=== PATIENT | female | born 1995 | race Caucasian/White ===

== ENCOUNTER → 2017-10-06 | Outpatient (REF) | payer OTHER ==
[2017-10-06 13:30] LABS: BASO % 0.4 % (0.0-1.0); EOS # 0.1 10^3/uL (0.0-0.50); EOS % 0.8 % (0.0-3.0); HEMATOCRIT 41.9 % (36.0-47.0); HEMOGLOBIN 13.5 g/dl (12.0-16.0); IMMATURE GRANULOCYTE # 0.1 10^3/uL (0-0); IMMATURE GRANULOCYTE % 0.8 % (0-0); LYMPH # 2.9 10^3/uL (1.5-6.5); LYMPH % 31.9 % (24.0-44.0); MEAN CORPUSCULAR HEMOGLOBIN 29.7 pg (27.0-33.0); MEAN CORPUSCULAR HGB CONC 32.2 g/dl (32.0-36.5); MEAN CORPUSCULAR VOLUME 92.3 fl (80.0-96.0); MONO # 0.7 10^3/uL (0.0-0.8); MONO % 8.3 % (0.0-5.0); NEUTROPHILS # 5.2 10^3/uL (1.8-7.7); NEUTROPHILS % 57.8 % (36.0-66.0); PLATELET COUNT, AUTOMATED 366 10^3/uL (150-450); RED BLOOD COUNT 4.54 10^6/uL (4.00-5.40); RED CELL DISTRIBUTION WIDTH 12.4 % (11.5-14.5); WHITE BLOOD COUNT 8.9 10^3/uL (4.0-10.0)
[2017-10-06 13:48] LABS: ALBUMIN/GLOBULIN RATIO 1.43 (1.00-1.93); ALKALINE PHOSPHATASE 80 U/L (45-117); ALT/SGPT 21 U/L (12-78); ANION GAP 6 MEQ/L (8-16); AST/SGOT 12 U/L (7-37); BILIRUBIN,TOTAL 0.4 MG/DL (0.2-1.0); BLOOD UREA NITROGEN 11 MG/DL (7-18); CARBON DIOXIDE LEVEL 28 MEQ/L (21-32); CHLORIDE LEVEL 108 MEQ/L (98-107); CREATININE FOR GFR 0.69 MG/DL (0.55-1.30); FREE T4 1.35 NG/DL (0.76-1.46); GLOMERULAR FILTRATION RATE > 60.0 (>60); GLUCOSE, FASTING 80 MG/DL (70-100); POTASSIUM SERUM 4.2 MEQ/L (3.5-5.1); SODIUM LEVEL 142 MEQ/L (136-145); TOTAL PROTEIN 6.8 GM/DL (6.4-8.2)
== END ==
LOC: M SFHCPLAZ 10:59
DX: Z00.00 Encounter for general adult medical examination without abnormal findings (principal); E06.3 Autoimmune thyroiditis

== ENCOUNTER → 2017-10-20 | Outpatient (REF) | payer OTHER ==
[2017-10-20 11:58] LABS: APPEARANCE, URINE HAZY (CLEAR); BACTERIA, URINE AUTO 2+ (NEGATIVE); BILIRUBIN, URINE AUTO NEGATIVE (NEGATIVE); BLOOD, URINE BLOOD NEGATIVE (NEGATIVE); COLOR, URINE YELLOW (YELLOW); GLUCOSE, URINE (UA) AUTO NEGATIVE (NEGATIVE); KETONE, URINE AUTO NEGATIVE (NEGATIVE); LEUKOCYTE ESTERASE, URINE AUTO TRACE (NEGATIVE); MUCUS, URINE SMALL (NEGATIVE); NITRITE, URINE AUTO POSITIVE (NEGATIVE); PROTEIN, URINE AUTO NEGATIVE (NEGATIVE); RBC, URINE AUTO 2 /HPF (0-3); SPECIFIC GRAVITY URINE AUTO 1.015 (1.002-1.035); SQUAMOUS EPITHELIAL CELL UR AU 0 /HPF (0-6); UROBILINOGEN, URINE AUTO 0.2 mg/dL (0.0-2.0); WBC, URINE AUTO 12 /HPF (0-3)
== END ==
LOC: M SFHCPLAZ 11:28
DX: R30.0 Dysuria (principal)

== ENCOUNTER → 2018-04-13 | Outpatient (REF) | payer OTHER ==
[2018-04-13 20:04] LABS: FREE T4 1.17 NG/DL (0.76-1.46)
== END ==
LOC: M SFHCPLAZ 15:19
DX: E06.3 Autoimmune thyroiditis (principal)

== ENCOUNTER → 2018-05-18 | Outpatient (CLI) | payer OTHER, MEDICAID | LOC: M SMT 12:15 | DX: Z34.82 Encounter for supervision of other normal pregnancy, second trimester (principal); Z36.89 Encounter for other specified antenatal screening ==

== ENCOUNTER → 2018-06-08 | Outpatient (CLI) | payer OTHER, MEDICAID | LOC: M RAD 10:47 | DX: Z36.89 Encounter for other specified antenatal screening (principal); Z3A.22 22 weeks gestation of pregnancy | CPT/HCPCS: 76816 ==

== ENCOUNTER → 2018-07-13 | Outpatient (CLI) | payer MEDICAID, OTHER ==
[2018-07-13 18:11] LABS: FREE T4 0.94 NG/DL (0.76-1.46); THYROID STIMULATING HORMONE 1.47 uIU/ML (0.358-3.740)
[2018-07-13 18:17] LABS: BASO # 0.1 10^3/uL (0.0-0.2); BASO % 0.3 % (0.0-1.0); EOS # 0.1 10^3/uL (0.0-0.50); EOS % 0.6 % (0.0-3.0); HEMATOCRIT 40.6 % (36.0-47.0); HEMOGLOBIN 12.9 g/dl (12.0-15.5); LYMPH # 2.4 10^3/uL (1.5-6.5); LYMPH % 15.1 % (24.0-44.0); MEAN CORPUSCULAR HEMOGLOBIN 29.9 pg (27.0-33.0); MEAN CORPUSCULAR HGB CONC 31.8 g/dl (32.0-36.5); MEAN CORPUSCULAR VOLUME 94.2 fl (80.0-96.0); MONO # 1.1 10^3/uL (0.0-0.8); MONO % 6.6 % (0.0-5.0); NEUTROPHILS # 12.2 10^3/uL (1.8-7.7); NEUTROPHILS % 76.5 % (36.0-66.0); PLATELET COUNT, AUTOMATED 276 10^3/uL (150-450); RED BLOOD COUNT 4.31 10^6/uL (4.00-5.40); WHITE BLOOD COUNT 15.9 10^3/uL (4.0-10.0)
== END ==
LOC: M SMT 14:06
PROVIDERS: ATTEND Specialist
DX: O99.282 Endocrine, nutritional and metabolic diseases complicating pregnancy, second trimester (principal); E03.9 Hypothyroidism, unspecified

== ENCOUNTER → 2018-09-08 | Outpatient (REF) | payer MEDICAID | LOC: M SFHCPLAZ 12:56 | PROVIDERS: ATTEND Physician Assistant | DX: J02.9 Acute pharyngitis, unspecified (principal) ==

== ENCOUNTER → 2018-09-15 | Outpatient (REF) | payer MEDICAID, OTHER | LOC: M LAB REF 12:54 | PROVIDERS: ATTEND Advanced Practice Midwife | DX: Z34.83 Encounter for supervision of other normal pregnancy, third trimester (principal) ==

== ENCOUNTER → 2018-09-27 | Outpatient (CLI) | payer MEDICAID ==
[2018-09-27 13:47] LABS: THYROID STIMULATING HORMONE 3.45 uIU/ML (0.358-3.740)
[2018-09-28 07:23] LABS: FREE T4 0.84 NG/DL (0.76-1.46)
== END ==
LOC: M LAB 11:59
PROVIDERS: ATTEND Advanced Practice Midwife
DX: Z34.83 Encounter for supervision of other normal pregnancy, third trimester (principal); Z3A.00 Weeks of gestation of pregnancy not specified

== ENCOUNTER 2018-10-01 21:12 | Inpatient (IN) | payer MEDICAID ==
[~2018-10-01] VITALS: Ht 162.6 cm; Wt 87.3 kg
[2018-10-01 21:38] VITALS: BP 129/80
[2018-10-01] MEDS ORDERED: LEVO150T7 PO (22:04)
[2018-10-01] MEDS ORDERED: PRENTAB9 PO (22:04)
[2018-10-01 22:28] LABS: HEMATOCRIT 43.3 % (36.0-47.0); HEMOGLOBIN 14.1 g/dl (12.0-15.5); MEAN CORPUSCULAR HEMOGLOBIN 29.1 pg (27.0-33.0); MEAN CORPUSCULAR HGB CONC 32.6 g/dl (32.0-36.5); MEAN CORPUSCULAR VOLUME 89.3 fl (80.0-96.0); PLATELET COUNT, AUTOMATED 308 10^3/uL (150-450); RED BLOOD COUNT 4.85 10^6/uL (4.00-5.40); WHITE BLOOD COUNT 12.5 10^3/uL (4.0-10.0)
[2018-10-01] MEDS ORDERED: PENICILLIN G POTASSIUM IV 5 MU in D5W MINI-BAG PLUS 100 ML IV STA (23:03)
[2018-10-01] MEDS ORDERED: LR 1,000 ML IV SCH (23:03)
[2018-10-01] MEDS ORDERED: OXYTOCIN DRIP 30 UNITS in APPROPRIATE DILUENT 1 EA IV SCH (23:15)
[2018-10-01 23:30] VITALS: BP 125/82
[2018-10-02] VITALS (28 sets, daily range): BP systolic 106–138; BP diastolic 60–93
[2018-10-02] MEDS ORDERED: FENTANYL 2MCG/ML ROPIVACAINE 0.2% IN 0.9% NACL 100ML IVBAG As Ordered ONE (02:50)
[2018-10-02] MEDS: PENICILLIN G POTASSIUM IV 2.5 MU in APPROPRIATE DILUENT 1 EA IV SCH ×2 (03:15→03:35)
[2018-10-02] MEDS ORDERED: ONDANSETRON 4MG/2ML VIAL (J2405) IV PRN ×2 (03:45→06:45)
[2018-10-02] MEDS ORDERED: NALOXONE INJ 0.4 MG/1 ML VIAL (J2310) IV PRN (03:45)
[2018-10-02] MEDS ORDERED: EPIDURAL COMMENT XX SCH (03:45)
[2018-10-02] MEDS ORDERED: diphenhydrAMINE INJ 50MG/ML VIAL (J1200) IV PRN (03:45)
[2018-10-02] MEDS ORDERED: EPIDURAL/PCA KEYS XX PRN (03:45)
[2018-10-02] MEDS ORDERED: LACTATED RINGER'S 1000 ML IV PRN (03:45)
[2018-10-02] MEDS ORDERED: ePHEDrine SULFATE 25 MG/5 ML(5MG/ML) SYRINGE IV PRN (03:45)
[2018-10-02] MEDS ORDERED: REFRIGERATOR IV KEYS XX PRN (03:45)
[2018-10-02] MEDS ORDERED: FENTANYL/ROPIVACAINE/NACL BAG 100 ML EPIDURAL SCH (03:45)
[2018-10-02 06:08] LABS: CORD GAS ABE A -12.7; CORD GAS HCO3 A 18.3 MEQ/L; CORD GAS PH A 7.08 UNITS; CORD GAS PO2 A 44.9 mmHg; CORD GAS SBC A 14.5 MEQ/L; CORD GAS TCO2 A 20.2 MEQ/L
[2018-10-02 06:10] LABS: CORD GAS HCO3 V 19.4 MEQ/L; CORD GAS O2 SAT V 59.5 %; CORD GAS PCO2 V 51.6 mmHg; CORD GAS PH V 7.194 UNITS; CORD GAS PO2 V 29.2 mmHg; CORD GAS SBC V 16.5 MEQ/L
[2018-10-02] MEDS ORDERED: OXYTOCIN DRIP 30 UNITS in APPROPRIATE DILUENT 1 EA IV SCH (06:34)
[2018-10-02] MEDS ORDERED: ACETAMINOPHEN 500 MG TAB PO PRN (06:45)
[2018-10-02] MEDS ORDERED: MOM 30ML SUSPENSION UDC PO PRN (06:45)
[2018-10-02] MEDS ORDERED: MEASLES,MUMPS,RUBELLA VACCINE INJ (MMR-II) (90707) SC SCH (06:45)
[2018-10-02] MEDS ORDERED: ANUSOL HC CREAM 30GM TOP PRN (06:45)
[2018-10-02] MEDS ORDERED: DOCUSATE SODIUM 100 MG CAP PO PRN (06:45)
[2018-10-02] MEDS ORDERED: METHYLERGONOVINE MALEATE 0.2 MG TAB PO PRN (06:45)
[2018-10-02] MEDS ORDERED: IBUPROFEN 800 MG TAB PO PRN (06:45)
[2018-10-02] MEDS ORDERED: RHOGAM 300 MCG (1500 IU) INJ (J2790) IM SCH (06:45)
[2018-10-02] MEDS ORDERED: DIBUCAINE 1% OINTMENT 30GM TOP PRN (06:45)
[2018-10-02] MEDS: LEVOTHYROXINE 150MCG TABLET (0.15MG) PO SCH (07:16)
--- NOTE | 2018-10-02 08:59 | HPE ---
DATE OF ADMISSION: 10/01/2018 REASON FOR ADMISSION: Early labor. HISTORY OF PRESENT ILLNESS: Ms. Montgomery is a 22-year-old 1 who presents at 30 weeks 6 days estimated gestational age by her last menstrual period confirmed by first-trimester ultrasound with complaints of contractions. She reports contractions that started early this evening and have increased in intensity and frequency. She denies any vaginal bleeding or leakage of fluid. She reports active movement. Her course has been unremarkable. She initiated care in the first trimester, and it has been appropriate throughout. PAST MEDICAL HISTORY: Len thyroiditis. PAST SURGICAL HISTORY: None. PAST OBSTETRICAL HISTORY: None. SOCIAL HISTORY: She denies any alcohol, tobacco, or drug use during her . MEDICATIONS: Includes: - levothyroxine 150 mcg - vitamins She has no known drug allergies. On physical examination, her vital signs are stable. She is afebrile. General appearance: Is well appearing. No acute distress. She has a category 1 heart rate tracing with contractions on tocometer. General appearance: Well-appearing. No acute distress. Lungs: Were clear to auscultation bilaterally. Cardiovascular: Heart: Regular rate and rhythm. Her abdomen is gravid, nontender. Estimated weight (EFW): 3700 grams. Cervical examination: She was 3 cm dilated, 50% effaced, -2 station. LABORATORIES: Her laboratories are O positive. Antibody screen is negative. Rubella is immune. Rapid plasma reagin (RPR) is nonreactive. Hepatitis surface antigen is negative. HIV is negative. Hepatitis C nonreactive. Chlamydia and gonorrhea screens are negative. She had a normal 1-hour Glucola, and she is Group B streptococcus (GBS) positive. ASSESSMENT: 1. Ms. Montgomery is a 22-year-old 1 at 30 weeks 6 days estimated gestational age in likely early labor. 2. Reassuring status. 3. Group B streptococcus positive. PLAN: 1. Admitted to labor and delivery. Complete blood count (CBC), rapid plasma reagin (RPR), type and screen. 2. The patient is scheduled for an induction of labor at 39 weeks on 10/02/2017. I discussed expected management for labor; and if no progression, I will start augmentation of her labor with Pitocin. I discussed medication use for augmentation of labor. Also discussed procedures performed in labor and delivery. She has also been verbally consented for emergency surgery, blood products, anesthesia and desires to proceed with admission. 3. The patient is a good candidate for an epidural. JOHNSON
[2018-10-02] MEDS: PRENATAL VITAMINS CHEWABLE TABLET PO SCH (09:00)
[2018-10-03] MEDS: LEVOTHYROXINE 150MCG TABLET (0.15MG) PO SCH (05:50)
[2018-10-03 05:58] VITALS: BP 129/76
[2018-10-03] MEDS: PRENATAL VITAMINS CHEWABLE TABLET PO SCH (08:45)
[2018-10-03] MEDS ORDERED: IBUP-1114 PO (10:09)
[2018-10-03] MEDS ORDERED: MAPA500T2 PO (10:11)
--- NOTE | 2018-10-11 13:25 | DN ---
DATE OF DELIVERY: 10/02/2018 TIME OF : 0554. GENDER: Female. SCORES: 8 and 9. WEIGHT: Was 8 pounds 12 ounces or 3960 grams. ESTIMATED BLOOD LOSS: 300 mL. ANESTHESIA: Epidural. LACERATION: Bilateral labial. COUNTS: Five laparotomy sponges accounted for prior to and after delivery, two sharps removed from delivery field. DELIVERY NOTE: On 10/02/2018, at 0554 hours, Ms. Montgomery, a 1, now para 1, had a spontaneous vaginal delivery of a liveborn female infant, scores 8 and 9, weight was 8 pounds 12 ounces or 3960 grams. Head was delivered occipitoanterior (OA) over intact perineum. This was followed by delivery of the shoulders and corpus. The was handed to mother with a good cry. Cord was clamped times two and was cut by the support person under my direction. Placenta was then drained and delivered grossly intact. A premix bag of 500 mL of normal saline with 30 units of Pitocin was bolused, along with uterine massage until the uterus was firm. On inspection, there was bilateral labial lacerations, which were repaired with 3-0 Vicryl Rapide. On reinspection, the cervix, vagina, and perineum were grossly intact and hemostatic. Mother and baby recovering in stable condition. The couple has decided to name their daughter, Tianna. JOHNSON
== END 2018-10-03 14:00 | disposition home or self-care (01) | DRG 560 ==
LOC: M LDI 21:12 → M OBS 10-02 08:50
PROVIDERS: ADMIT Obstetrics & Gynecology; ATTEND Obstetrics & Gynecology
PROC: 10E0XZZ Delivery of Products of Conception, External Approach (ICD-10-PCS; principal; 2018-10-02)
PROC: 0HQ9XZZ Repair Perineum Skin, External Approach (ICD-10-PCS; 2018-10-02)
DX: O60.14X0 Preterm labor third trimester with preterm delivery third trimester, not applicable or unspecified (principal); O99.820 Streptococcus B carrier state complicating pregnancy; Z37.0 Single live birth; Z3A.30 30 weeks gestation of pregnancy; O70.0 First degree perineal laceration during delivery

== ENCOUNTER → 2018-12-21 | Outpatient (REF) | payer MEDICAID ==
[~2018-12-21] MED LIST: IBUP-1114 PO; LEVO150T7 PO; MAPA500T2 PO; PRENTAB9 PO
[2018-12-21 18:03] LABS: BASO % 0.4 % (0.0-1.0); EOS # 0.2 10^3/uL (0.0-0.50); EOS % 1.5 % (0.0-3.0); LYMPH # 3.5 10^3/uL (1.5-6.5); LYMPH % 35.4 % (24.0-44.0); MEAN CORPUSCULAR HGB CONC 31.7 g/dl (32.0-36.5); MEAN CORPUSCULAR VOLUME 91.5 fl (80.0-96.0); MONO # 0.7 10^3/uL (0.0-0.8); MONO % 7.1 % (0.0-5.0); NEUTROPHILS # 5.4 10^3/uL (1.8-7.7); NEUTROPHILS % 55.2 % (36.0-66.0); PLATELET COUNT, AUTOMATED 357 10^3/uL (150-450); RED BLOOD COUNT 4.48 10^6/uL (4.00-5.40); WHITE BLOOD COUNT 9.8 10^3/uL (4.0-10.0)
[2018-12-21 18:24] LABS: FREE T4 1.14 NG/DL (0.76-1.46); THYROID STIMULATING HORMONE 0.092 uIU/ML (0.358-3.740)
== END ==
LOC: M SFHCPLAZ 15:20
PROVIDERS: ATTEND Physician Assistant Medical
DX: E06.3 Autoimmune thyroiditis (principal); Z39.1 Encounter for care and examination of lactating mother

== ENCOUNTER → 2019-02-17 | Outpatient (CLI) | payer MEDICAID ==
[2019-02-17 17:52] LABS: FREE T4 0.98 NG/DL (0.76-1.46); THYROID STIMULATING HORMONE 1.13 uIU/ML (0.358-3.740)
== END ==
LOC: M SMT 13:43
PROVIDERS: ATTEND Physician Assistant Medical
DX: E06.3 Autoimmune thyroiditis (principal)

== ENCOUNTER → 2019-04-07 | Outpatient (REF) | payer OTHER | LOC: M LAB REF 13:43 | PROVIDERS: ATTEND Obstetrics & Gynecology | DX: Z12.4 Encounter for screening for malignant neoplasm of cervix (principal) ==

== ENCOUNTER → 2019-06-09 | Outpatient (CLI) | payer OTHER ==
[2019-06-09 13:19] LABS: BASO % 0.5 % (0.0-1.0); EOS # 0.1 10^3/uL (0.0-0.5); EOS % 0.9 % (0.0-3.0); HEMATOCRIT 45.3 % (36.0-47.0); HEMOGLOBIN 14.4 g/dl (12.0-15.5); LYMPH # 2.6 10^3/uL (1.5-5.0); LYMPH % 29.5 % (24.0-44.0); MEAN CORPUSCULAR HEMOGLOBIN 29.1 pg (27.0-33.0); MEAN CORPUSCULAR HGB CONC 31.8 g/dl (32.0-36.5); MEAN CORPUSCULAR VOLUME 91.5 fl (80.0-96.0); MONO # 0.7 10^3/uL (0.0-0.8); MONO % 7.6 % (0.0-5.0); NEUTROPHILS # 5.4 10^3/uL (1.5-8.5); NEUTROPHILS % 61.2 % (36.0-66.0); PLATELET COUNT, AUTOMATED 296 10^3/uL (150-450); RED BLOOD COUNT 4.95 10^6/uL (4.00-5.40); WHITE BLOOD COUNT 8.8 10^3/uL (4.0-10.0)
[2019-06-09 13:32] LABS: FREE T4 0.98 NG/DL (0.76-1.46)
[2019-06-09 13:53] LABS: RUBELLA IgG QUALITATIVE IMMUNE (IMMUNE)
[2019-06-09 14:22] LABS: HEPATITIS C VIRUS ABY INDEX 0.2 INDEX (<0.8); HIV 1&2 SCREEN CENTAUR NEGATIVE (NEGATIVE)
[2019-06-12 16:07] LABS: CHLAMYDIA DNA AMPLIFICATION NEGATIVE (NEGATIVE); GC DNA AMPLIFICATION NEGATIVE (NEGATIVE)
== END ==
LOC: M SMT 10:24
PROVIDERS: ATTEND Obstetrics & Gynecology
DX: Z34.81 Encounter for supervision of other normal pregnancy, first trimester (principal)

== ENCOUNTER → 2019-07-17 | Outpatient (CLI) | payer OTHER, MEDICAID | LOC: M SMT 14:36 | PROVIDERS: ATTEND Obstetrics & Gynecology | DX: Z53.9 Procedure and treatment not carried out, unspecified reason (principal) ==

== ENCOUNTER → 2019-08-03 | Outpatient (CLI) | payer MEDICAID, OTHER ==
--- NOTE | 2019-08-03 15:27 | REP ---
Clinical: Anatomical evaluation. Comparison: None . Findings: Examination demonstrates a single live intrauterine in variable presentation. motion is identified by technologist. Placenta is noted posterior and grade zero without evidence for placenta previa or abruption. Amniotic fluid volume is normal. Cervix measures 3.8 cm in length and appears closed. Nuchal cord noted. Gestational age by LMP 19 weeks 0 days with TERRY 12/28/2019 . Gestational age by current measurements 18 weeks 4 days with TERRY 12/31/2019 . FHR equals 153 beats per minute. BPD 4.0 cm 18 weeks 1 day HC 15.3 cm 18 weeks 2 days AC 12.7 cm 18 weeks 2 days FL 3.0 cm 19 weeks 1 day HL 2.7 cm 18 weeks 6 days HC/AC ratio 1.20 Estimated weight 251 grams ( 51st percentile). Anatomical assessment demonstrates normal structures including cranium, choroid plexus, cavum, cerebellum/posterior fossa, facial features, lungs, diaphragm, stomach, cord insertion/three-vessel cord, kidneys/bladder, spine, and extremities. Limited evaluation of the heart/ventricular outflow tracts warrant reevaluation. Echogenic focus in the left cardiac ventricle likely prominent chordae tendineae. Impression: 1. Single live intrauterine in variable presentation demonstrating appropriate interval growth. 2. Anatomical limitations as noted above warrant reevaluation and follow-up. Electronically Signed by Umesh Canela MD 08/03/2019 03:18 P
== END ==
LOC: M RAD 14:10
PROVIDERS: ATTEND Obstetrics & Gynecology
DX: Z34.80 Encounter for supervision of other normal pregnancy, unspecified trimester (principal); Z3A.18 18 weeks gestation of pregnancy

== ENCOUNTER → 2019-08-04 | Outpatient (CLI) | payer OTHER ==
[2019-08-04 14:44] LABS: FREE T4 1.03 NG/DL (0.76-1.46); THYROID STIMULATING HORMONE 4.36 uIU/ML (0.358-3.740)
== END ==
LOC: M PLALAB 10:50
PROVIDERS: ATTEND Nurse Practitioner Family
DX: E03.9 Hypothyroidism, unspecified (principal)

== ENCOUNTER → 2019-08-28 | Outpatient (CLI) | payer OTHER ==
[2019-08-28 20:38] LABS: FREE T4 0.97 NG/DL (0.76-1.46); THYROID STIMULATING HORMONE 1.32 uIU/ML (0.358-3.740)
== END ==
LOC: M WUC 14:54
PROVIDERS: ATTEND Nurse Practitioner Family
DX: E03.9 Hypothyroidism, unspecified (principal)

== ENCOUNTER → 2019-09-06 | Outpatient (CLI) | payer OTHER ==
--- NOTE | 2019-09-07 11:24 | REP ---
Clinical: Anatomical evaluation. Comparison: 08/03/2019 . Findings: Examination demonstrates a single live intrauterine in breech presentation. motion is identified by technologist. Placenta is noted posterior and grade I without evidence for placenta previa or abruption. Amniotic fluid volume is normal. Cervix measures 4.4 cm in length and appears closed. No evidence for nuchal cord. Gestational age by LMP 23 weeks 6 days with TERRY 12/28/2019 . Gestational age by current measurements 23 weeks 4 days with TERRY 12/30/2019 . FHR equals 150 beats per minute. Estimated weight 584 grams ( 28th percentile). Anatomical assessment demonstrates normal structures including cranium, choroid plexus, cavum, cerebellum/posterior fossa, facial features, lungs, four-chamber heart/ventricular outflow tracts, diaphragm, stomach, cord insertion/three-vessel cord, kidneys/bladder, spine, and extremities. Impression: Single live intrauterine in breech presentation demonstrating appropriate interval growth. Anatomical assessment is complete and normal. Electronically Signed by Umesh Canela MD 09/07/2019 05:40 A
== END ==
LOC: M RAD 15:37
PROVIDERS: ATTEND Obstetrics & Gynecology
DX: Z34.92 Encounter for supervision of normal pregnancy, unspecified, second trimester (principal); Z3A.23 23 weeks gestation of pregnancy

== ENCOUNTER → 2019-09-29 | Outpatient (CLI) | payer OTHER ==
[2019-09-29 19:57] LABS: HEMATOCRIT 45.5 % (36.0-47.0); HEMOGLOBIN 14.2 g/dl (12.0-15.5); MEAN CORPUSCULAR HEMOGLOBIN 29.6 pg (27.0-33.0); MEAN CORPUSCULAR HGB CONC 31.2 g/dl (32.0-36.5); MEAN CORPUSCULAR VOLUME 94.8 fl (80.0-96.0); PLATELET COUNT, AUTOMATED 299 10^3/uL (150-450); WHITE BLOOD COUNT 15.5 10^3/uL (4.0-10.0)
== END ==
LOC: M PLALAB 12:37
PROVIDERS: ATTEND Advanced Practice Midwife
DX: Z34.92 Encounter for supervision of normal pregnancy, unspecified, second trimester (principal); Z3A.00 Weeks of gestation of pregnancy not specified

== ENCOUNTER → 2019-10-05 | Outpatient (CLI) | payer OTHER ==
[2019-10-05 18:01] LABS: FREE T4 1.14 NG/DL (0.76-1.46); THYROID STIMULATING HORMONE 0.878 uIU/ML (0.358-3.740)
== END ==
LOC: M PLALAB 12:35
PROVIDERS: ATTEND Internal Medicine Endocrinology, Diabetes & Metabolism
DX: E03.9 Hypothyroidism, unspecified (principal)

== ENCOUNTER → 2019-11-20 | Outpatient (CLI) | payer OTHER ==
[2019-11-20 16:32] LABS: THYROID STIMULATING HORMONE 0.279 uIU/ML (0.358-3.740)
[2019-11-20 17:13] LABS: HIV 1&2 SCREEN CENTAUR NEGATIVE (NEGATIVE)
== END ==
LOC: M WUC 11:28
PROVIDERS: ATTEND Advanced Practice Midwife
DX: O99.283 Endocrine, nutritional and metabolic diseases complicating pregnancy, third trimester (principal); E07.9 Disorder of thyroid, unspecified; Z3A.00 Weeks of gestation of pregnancy not specified

== ENCOUNTER → 2019-11-29 | Outpatient (REF) | payer OTHER | LOC: M SFHCWAGY 12:57 | PROVIDERS: ATTEND Advanced Practice Midwife | DX: Z36.85 Encounter for antenatal screening for Streptococcus B (principal); O99.283 Endocrine, nutritional and metabolic diseases complicating pregnancy, third trimester; Z3A.00 Weeks of gestation of pregnancy not specified ==

== ENCOUNTER → 2019-12-01 | Outpatient (REF) | payer OTHER | LOC: M PLALAB 11:53 | PROVIDERS: ATTEND Advanced Practice Midwife | DX: O99.283 Endocrine, nutritional and metabolic diseases complicating pregnancy, third trimester (principal); Z3A.00 Weeks of gestation of pregnancy not specified ==

== ENCOUNTER 2019-12-22 13:43 | Inpatient (IN) | payer OTHER ==
[2019-12-22] VITALS (15 sets, daily range): BP systolic 101–157; BP diastolic 55–112
[~2019-12-22] VITALS: Ht 162.6 cm; Wt 90.1 kg
[2019-12-22] MEDS ORDERED: LACTATED RINGER'S 1000 ML IV STA (14:25)
[2019-12-22] MEDS ORDERED: LEVO150T7 PO (14:28)
[2019-12-22] MEDS ORDERED: miSOPROStol 50 MCG 1/2 TAB (S0191) PO SCH (14:30)
--- NOTE | 2019-12-22 14:47 | HPEPDOC ---
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 pertinent history Past Medical History Medical History hashimotos thyroiditis Surgical History: Denies/None Family History Significant Family History: No pertinent family hx Social History Marital Status: Single Family situation: Spouse/partner home Psychosocial History: No pertinent psych hx * Smoker: non-smoker Alcohol: Denies Drugs: denies Abuse Violence Screening Have you been hit/kicked/slapp: No Have you been sexually assault: No Imunizations Tdap status: declined Allergies Coded Allergies: No Known Allergies (Unverified , 10/01/18) Medications Scheduled Levothyroxine Sodium (Levothyroxine Sodium) 150 Mcg Tablet, 162.5 MCG PO DAILY No.137/Iron/Folic Acd ( Vitamin Tablet) 1 Tab Tab, 1 TAB PO DAILY Physical Examination Physical Examination GENERAL: Alert and oriented times three. BREAST: . ABDOMEN: Gravid and non-tender to touch. FETUS: Is vertex (VTX) by sterile vaginal examination (SVE), fetus is vertex (VTX) by Colt. HEART RATE: Regular rate and rhythm. LUNGS: Clear to auscultation (CTA). EXTREMITIES: No edema. No clonus. Deep tendon reflexes (DTRs) + 2. Laboratory Data [facility]H [facility] Laboratory Tests 2 12/22/19 13:58: Serology Scanned Report Hepatitis B Testing Pertinent Laboratoy Data Blood Type: O+ RBC Antibody Screen: Negative HIV: Negative Hepatitis B: Negative Hepatitis C: Negative Rapid Plasma Reagin: Nonreactive Rubella: Immune Chlamydia/Gonorrhea: Negative Group B Streptococcus: Positive Glucose Tolerance Test: 95 Anatomy Ultrasound Ultrasound Date: Aug 03, 2019 Placenta Location: Posterior Normal Anatomy: Yes Placenta Previa: No Estimated Weight (grams): 251 (51%) Other Ultrasounds 06/01/2019 dating 9w6d 09/06/2019 f/u anatomy normal, 584gm, 28% Steroid Therapy Steroid Therapy: No Vaginal Examination Dilation: 1cm Effacement: 50% Station: -2 Cervical Consistency: Medium Cervical Position: Posterior Presentation: Cephalic presentation Assessment Heart Rate (FHR): 150 Variability: Moderate Accelerations: Positive Decelerations: None Tocometer Contractions: No Strength: palpated as mild Assessment/Plan Assessment Dorie is a 23-year-old (G)2 para (P)1-0-0-1 at 39+1 weeks by 9-week ultrasound. Presents to Labor and Delivery (L&D) for elective induction of labor. Reports good movement. Denies LOF, bleeding or regular UC. Plan Admit and orient per consult Dr Minaya Injury/Safety Hazard Assessment and consent. Diet: Regular. Group B Streptococcus (GBS) positive. Treat in labor. Labs and intravenous (IV) per unit protocol. Counseled on misoprostol, Pitocin and induction of labor (IOL). Lactated Ringers (LR): Bolus 500 mL, then saline lock. Plans epidural for labor coping Anticipate normal spontaneous delivery (). C-S as appropriate. Viviana Barbour CNM Dec 22, 2019 14:47
[2019-12-22 15:01] LABS: HEMATOCRIT 47.2 % (36.0-47.0); HEMOGLOBIN 15.5 g/dl (12.0-15.5); MEAN CORPUSCULAR HEMOGLOBIN 29.1 pg (27.0-33.0); MEAN CORPUSCULAR HGB CONC 32.8 g/dl (32.0-36.5); MEAN CORPUSCULAR VOLUME 88.7 fl (80.0-96.0); PLATELET COUNT, AUTOMATED 293 10^3/uL (150-450); RED BLOOD COUNT 5.32 10^6/uL (4.00-5.40); WHITE BLOOD COUNT 13.9 10^3/uL (4.0-10.0)
[2019-12-22] MEDS ORDERED: FAMOTIDINE 20 MG TAB PO SCH (15:30)
[2019-12-22] MEDS ORDERED: OXYTOCIN DRIP 30 UNITS in IV 1 EA IV SCH (19:00)
--- NOTE | 2019-12-22 19:00 | IPNPDOC ---
Text Note Date of Service The patient was seen on 12/22/19. NOTE Progress Reports feeling crampy but not yet too uncomfortable UC Q 1.5-2 minutes FH 145, Cat I SVE 2/80/-2, less posterior Discontinue misoprostol. Start pitocin IOL and GBS prophylaxis. Epidural as needed. VS,Fishbone, I+O VS, Fishbone, I+O Laboratory Tests 12/22/19 14:47 Vital Signs Date Time Temp Pulse Resp B/P (MAP) Pulse Ox O2 Delivery O2 Flow Rate FiO2 12/22/19 18:24 98.4 94 18 116/57 (76) 12/22/19 14:04 98 Room Air Viviana Barbour CNM Dec 22, 2019 19:00
[2019-12-22] MEDS: LR 1,000 ML IV SCH ×2 (19:26→23:42)
[2019-12-22] MEDS ORDERED: PENICILLIN G POTASSIUM IV 5 MU in D5W MINI-BAG PLUS 100 ML IV STA (20:31)
[2019-12-23] VITALS (22 sets, daily range): BP systolic 104–149; BP diastolic 47–90
[2019-12-23] MEDS ORDERED: LR 500 ML IV ONE (00:15)
[2019-12-23] MEDS ORDERED: TERBUTALINE SULFATE 1 MG/ML VIAL (J3105) SC ONE (00:45)
[2019-12-23] MEDS: PENICILLIN G POTASSIUM IV 2.5 MU in IV 1 EA IV SCH ×2 (00:48→04:35)
--- NOTE | 2019-12-23 00:57 | IPNPDOC ---
Text Note Date of Service The patient was seen on 12/23/19. NOTE Progress Prolonged episode of tachycardia accompanied by tachysystole despite position change, IV fluid bolus and discontinuation of pitocin. Afebrile, normotensive SVE 2-3/80/-2 Terbutaline 0.2mg SC given. Continue to observe. Consider AROM with cooks catheter VS,Fishbone, I+O VS, Fishbone, I+O Laboratory Tests 12/22/19 14:47 Vital Signs Date Time Temp Pulse Resp B/P (MAP) Pulse Ox O2 Delivery O2 Flow Rate FiO2 12/22/19 23:31 88 112/68 (83) 12/22/19 23:01 97.3 12/22/19 22:24 18 97 Room Air I&O- Last 24 Hours up to 6 AM 12/23/19 05:59 Intake Total 500 ml Balance 500 ml Viviana Barbour CNM Dec 23, 2019 00:57
[2019-12-23] MEDS ORDERED: FENTANYL 2MCG/ML ROPIVACAINE 0.2% IN 0.9% NACL 100ML IVBAG As Ordered ONE (01:48)
--- NOTE | 2019-12-23 02:57 | IPNPDOC ---
Text Note Date of Service The patient was seen on 12/23/19. NOTE Progress Comfortable after epidural FH 150, Cat I UC 2-4 minutes SROM clear fluid 0250. Observe, consider resuming pitocin prn VS,Fishbone, I+O VS, Fishbone, I+O Laboratory Tests 12/22/19 14:47 Vital Signs Date Time Temp Pulse Resp B/P (MAP) Pulse Ox O2 Delivery O2 Flow Rate FiO2 12/23/19 00:02 110 125/85 (98) 12/22/19 23:56 98.0 12/22/19 22:24 18 97 Room Air I&O- Last 24 Hours up to 6 AM 12/23/19 06:00 Intake Total 1000 ml Balance 1000 ml Viviana Barbour CNM Dec 23, 2019 02:57
[2019-12-23] MEDS: ACETAMINOPHEN 500 MG TAB PO PRN ×3 (03:17→22:48)
[2019-12-23] MEDS ORDERED: EPIDURAL COMMENT XX SCH (04:00)
[2019-12-23] MEDS ORDERED: ONDANSETRON 4MG/2ML VIAL IV PRN (04:00)
[2019-12-23] MEDS ORDERED: diphenhydrAMINE 50MG/ML VIAL (J1200) IV PRN (04:00)
[2019-12-23] MEDS ORDERED: FENTANYL/ROPIVACAINE/NACL BAG 100 ML EPIDURAL SCH (04:00)
[2019-12-23] MEDS ORDERED: EPIDURAL/PCA KEYS XX PRN (04:00)
[2019-12-23] MEDS ORDERED: REFRIGERATOR IV KEYS XX PRN (04:00)
[2019-12-23] MEDS ORDERED: ePHEDrine SULFATE 25 MG/5 ML(5MG/ML) SYRINGE IV PRN (04:00)
[2019-12-23] MEDS ORDERED: LACTATED RINGER'S 1000 ML IV PRN (04:00)
[2019-12-23] MEDS ORDERED: NALOXONE INJ 0.4MG/1ML VIAL (J2310 PER 1MG) IV PRN (04:00)
[2019-12-23] MEDS: LEVOTHYROXINE 12.5MCG PER 1/2 TAB (0.0125MG) PO SCH (06:05)
[2019-12-23] MEDS: LEVOTHYROXINE 150MCG TABLET (0.15MG) PO SCH (06:05)
[2019-12-23] MEDS ORDERED: RHOGAM 300 MCG (1500 IU) INJ (J2790) IM SCH (07:00)
[2019-12-23] MEDS ORDERED: DIBUCAINE 1% OINTMENT 30GM TOP PRN (07:00)
[2019-12-23] MEDS ORDERED: ACETAMINOPHEN TAB 650MG DOSE (2X325MG) PO PRN (07:00)
[2019-12-23] MEDS ORDERED: MEASLES,MUMPS,RUBELLA VACCINE INJ (MMR-II) (90707) SC SCH (07:00)
[2019-12-23] MEDS ORDERED: IBUPROFEN 600 MG TAB PO PRN (07:00)
[2019-12-23] MEDS ORDERED: MOM 30ML SUSPENSION UDC PO PRN (07:00)
[2019-12-23] MEDS ORDERED: METHYLERGONOVINE MALEATE 0.2 MG TAB PO PRN (07:00)
[2019-12-23] MEDS ORDERED: DOCUSATE SODIUM 100 MG CAP PO PRN (07:00)
[2019-12-23] MEDS ORDERED: ONDANSETRON 4MG/2ML VIAL IV ONE (07:30)
--- NOTE | 2019-12-23 07:31 | DNPDOC ---
[facility] Delivery Note Delivery Note DATE OF DELIVERY: 12/23/2019 PREDELIVERY DIAGNOSIS: 39+2/7 weeks' gestation and labor. POST DELIVERY DIAGNOSIS: Delivered. PROCEDURE: Spontaneous vaginal delivery. PROVIDER: Viviana Barbour CNM ANESTHESIA: Epidural. ESTIMATED BLOOD LOSS: 300 mL. FINDINGS: 8 pound 13 ounce, 4000gm male infant, Score 8/9, nuchal cord times 1, reduced prior to delivery. DELIVERY SUMMARY: Patient is a 24-year-old 2 now para 2-0-0-2 who was admitted to labor and delivery for elective induction of labor. She received misoprostol followed by pitocin and labor did ensue. SROM clear fluid 0250. She utilized an epidural for labor coping. Fully dilated 0621. Viable male delivered LIV after reduction of loose nuchal cord @ 0638. Spontaneous respirations with stimulation. Transitioned on maternal abdomen. Cord doubly clamped and cut after pulsations ceased. Apgars 8/9. Small vaginal outlet abrasion reapproximated with 2 stitches of 3-0 vicryl rapide. EBL 300ml. Sponge, sharp and instrument count correct. Viviana Barbour CNM Dec 23, 2019 07:02
[2019-12-23] MEDS: PRENATAL VITAMINS CHEWABLE TABLET PO SCH (09:00)
[2019-12-24] MEDS: IBUPROFEN 800 MG TAB PO PRN ×2 (00:22→11:52)
[2019-12-24] MEDS: LEVOTHYROXINE 12.5MCG PER 1/2 TAB (0.0125MG) PO SCH (05:56)
[2019-12-24] MEDS: LEVOTHYROXINE 150MCG TABLET (0.15MG) PO SCH (05:56)
[2019-12-24] MEDS: ACETAMINOPHEN 500 MG TAB PO PRN (05:57)
[2019-12-24 06:00] VITALS: BP 121/86
[2019-12-24 07:30] VITALS: BP 121/86
[2019-12-24] MEDS: PRENATAL VITAMINS CHEWABLE TABLET PO SCH (07:31)
[2019-12-24] MEDS ORDERED: IBUP80TA PO (12:31)
[2019-12-24] MEDS ORDERED: ACET-683 PO (12:31)
== END 2019-12-24 16:15 | disposition home or self-care (01) | DRG 560 ==
LOC: M LDI 13:43 → M OBS 12-23 09:52
PROVIDERS: ADMIT Advanced Practice Midwife; ATTEND Advanced Practice Midwife
PROC: 3E033VJ Introduction of Other Hormone into Peripheral Vein, Percutaneous Approach (ICD-10-PCS; 2019-12-22)
PROC: 3E0DXGC Introduction of Other Therapeutic Substance into Mouth and Pharynx, External Approach (ICD-10-PCS; 2019-12-22)
PROC: 10E0XZZ Delivery of Products of Conception, External Approach (ICD-10-PCS; principal; 2019-12-23)
DX: O80 Encounter for full-term uncomplicated delivery (principal); Z37.0 Single live birth; Z3A.39 39 weeks gestation of pregnancy

== ENCOUNTER → 2020-01-31 | Outpatient (CLI) | payer OTHER ==
[~2020-01-31] MED LIST changes: +ACET-683 PO; +IBUP80TA PO
[2020-01-31 17:04] LABS: FREE T4 1.11 NG/DL (0.76-1.46); THYROID STIMULATING HORMONE 0.374 uIU/ML (0.358-3.740)
== END ==
LOC: M WUC 12:35
PROVIDERS: ATTEND Nurse Practitioner Family
DX: E03.9 Hypothyroidism, unspecified (principal)

== ENCOUNTER → 2020-02-02 | Outpatient (REF) | payer OTHER | LOC: M PLALAB 11:26 | PROVIDERS: ATTEND Advanced Practice Midwife | DX: N91.2 Amenorrhea, unspecified (principal) ==

== ENCOUNTER → 2020-02-05 | Outpatient (CLI) | payer OTHER | LOC: M PLALAB 11:17 | PROVIDERS: ATTEND Advanced Practice Midwife | DX: N91.2 Amenorrhea, unspecified (principal) ==

== ENCOUNTER → 2020-03-08 | Outpatient (REF) | payer OTHER | LOC: M SFHCPLAZ 17:31 | PROVIDERS: ATTEND Nurse Practitioner Family | DX: J02.9 Acute pharyngitis, unspecified (principal) ==

== ENCOUNTER → 2020-04-11 | Outpatient (REF) | payer OTHER | LOC: M SFHCWAGY 15:34 | PROVIDERS: ATTEND Advanced Practice Midwife | DX: Z32.00 Encounter for pregnancy test, result unknown (principal) ==

== ENCOUNTER → 2020-04-15 | Outpatient (REF) | payer OTHER ==
[2020-06-10 21:41] LABS: FREE T4 1.14 NG/DL (0.76-1.46); THYROID STIMULATING HORMONE 2.43 uIU/ML (0.358-3.740)
== END ==
LOC: M PLALAB 17:19
PROVIDERS: ATTEND Nurse Practitioner Family
DX: E03.9 Hypothyroidism, unspecified (principal)

== ENCOUNTER → 2020-04-24 | Outpatient (REF) | payer OTHER | LOC: M WHC 15:00 | PROVIDERS: ATTEND Obstetrics & Gynecology | DX: Z12.4 Encounter for screening for malignant neoplasm of cervix (principal) ==

== ENCOUNTER → 2020-08-01 | Outpatient (CLI) | payer OTHER ==
[2020-08-01 17:13] LABS: FREE T4 1.24 NG/DL (0.76-1.46); THYROID STIMULATING HORMONE 1.94 uIU/ML (0.358-3.740)
== END ==
LOC: M PLALAB 10:48
PROVIDERS: ATTEND Nurse Practitioner Family
DX: E03.9 Hypothyroidism, unspecified (principal)

== ENCOUNTER → 2020-12-09 | Outpatient (REF) | payer OTHER ==
[2020-12-09 14:58] LABS: FREE T4 0.97 NG/DL (0.76-1.46); THYROID STIMULATING HORMONE 8.06 uIU/ML (0.358-3.740)
== END ==
LOC: M PLALAB 13:41
PROVIDERS: ATTEND Nurse Practitioner Family
DX: E03.9 Hypothyroidism, unspecified (principal)

== ENCOUNTER → 2021-02-11 | Outpatient (REF) | payer OTHER ==
[2021-02-11 18:09] LABS: FREE T4 0.91 NG/DL (0.76-1.46); THYROID STIMULATING HORMONE 2.6 uIU/ML (0.358-3.740)
== END ==
LOC: M PLALAB 16:46
PROVIDERS: ATTEND Nurse Practitioner Family
DX: E03.9 Hypothyroidism, unspecified (principal)

== ENCOUNTER → 2021-04-30 | Outpatient (REF) | payer OTHER | LOC: M SFHCWAGY 18:57 | PROVIDERS: ATTEND Obstetrics & Gynecology | DX: Z12.4 Encounter for screening for malignant neoplasm of cervix (principal) ==

== ENCOUNTER → 2021-06-19 | Outpatient (CLI) | payer OTHER ==
[2021-06-19 14:12] LABS: FREE T4 1.12 NG/DL (0.76-1.46); THYROID STIMULATING HORMONE 1.94 uIU/ML (0.358-3.740)
== END ==
LOC: M PLALAB 11:30
PROVIDERS: ATTEND Nurse Practitioner Family
DX: E03.9 Hypothyroidism, unspecified (principal)

== ENCOUNTER → 2022-04-14 | Outpatient (CLI) | payer SELFPAY ==
[2022-04-14 15:52] LABS: FREE T4 1.2 NG/DL (0.76-1.46); THYROID STIMULATING HORMONE 0.082 uIU/ML (0.358-3.740)
== END ==
LOC: M PLALAB 12:37
PROVIDERS: ATTEND Nurse Practitioner Family
DX: E03.9 Hypothyroidism, unspecified (principal)

== ENCOUNTER → 2022-10-21 | Outpatient (REF) | payer SELFPAY | LOC: M SFHCPLAZ 12:46 | PROVIDERS: ATTEND Physician Assistant Medical | DX: J02.9 Acute pharyngitis, unspecified (principal) ==

== ENCOUNTER → 2022-11-17 | Outpatient (CLI) | payer SELFPAY ==
[2022-11-17 13:39] LABS: HEMATOCRIT 45.1 % (36.0-47.0); HEMOGLOBIN 14.2 g/dl (12.0-15.5); MEAN CORPUSCULAR HEMOGLOBIN 28.6 pg (27.0-33.0); MEAN CORPUSCULAR HGB CONC 31.5 g/dl (32.0-36.5); MEAN CORPUSCULAR VOLUME 90.9 fl (80.0-96.0); PLATELET COUNT, AUTOMATED 340 10^3/uL (150-450); RED BLOOD COUNT 4.96 10^6/uL (4.00-5.40); WHITE BLOOD COUNT 10.5 10^3/uL (4.0-10.0)
[2022-11-17 14:13] LABS: THYROID STIMULATING HORMONE 0.228 uIU/ML (0.55-4.78)
[2022-11-17 14:14] LABS: ALBUMIN 4.3 G/DL (3.2-5.2); ALKALINE PHOSPHATASE 85 U/L (46-116); ALT/SGPT 24 U/L (7.0-40); AST/SGOT 16 U/L (<34); BILIRUBIN,TOTAL 0.7 MG/DL (0.3-1.2); BLOOD UREA NITROGEN 14 MG/DL (9-23); CALCIUM LEVEL 9.2 MG/DL (8.5-10.1); CARBON DIOXIDE LEVEL 26 MMOL/L (20-31); CHLORIDE LEVEL 105 MMOL/L (98-107); CHOLESTEROL LEVEL 150 MG/DL (<200); CHOLESTEROL RISK RATIO 2.86 (<5); CREATININE FOR GFR 0.65 MG/DL (0.55-1.30); FREE T4 1.32 NG/DL (0.89-1.76); GLOMERULAR FILTRATION RATE > 60.0 (>60); GLUCOSE, FASTING 88 MG/DL (60-100); HDL CHOLESTEROL 52.4 MG/DL (>40); LDL CHOLESTEROL 82.6 MG/DL (<100); NON-HDL-C 97.6 MG/DL; SODIUM LEVEL 138 MMOL/L (136-145); TOTAL PROTEIN 6.8 G/DL (5.7-8.2); TRIGLYCERIDES LEVEL 75 MG/DL (<150)
== END ==
LOC: M PLALAB 11:09
PROVIDERS: ATTEND Physician Assistant Medical
DX: E06.3 Autoimmune thyroiditis (principal); Z13.220 Encounter for screening for lipoid disorders

== ENCOUNTER → 2023-03-24 | Outpatient (CLI) | payer SELFPAY ==
[2023-03-24 14:28] LABS: BASO # 0.1 10^3/uL (0.0-0.2); BASO % 0.6 % (0.0-1.0); EOS # 0.1 10^3/uL (0.0-0.5); EOS % 0.8 % (0.0-3.0); HEMATOCRIT 41.3 % (36.0-47.0); HEMOGLOBIN 13.3 g/dl (12.0-15.5); LYMPH # 3.4 10^3/uL (1.5-5.0); LYMPH % 28.5 % (24.0-44.0); MEAN CORPUSCULAR HEMOGLOBIN 29.6 pg (27.0-33.0); MEAN CORPUSCULAR HGB CONC 32.2 g/dl (32.0-36.5); MEAN CORPUSCULAR VOLUME 91.8 fl (80.0-96.0); MONO # 0.7 10^3/uL (0.0-0.8); NEUTROPHILS # 7.5 10^3/uL (1.5-8.5); NEUTROPHILS % 63.8 % (36.0-66.0); PLATELET COUNT, AUTOMATED 311 10^3/uL (150-450); WHITE BLOOD COUNT 11.8 10^3/uL (4.0-10.0)
[2023-03-24 14:57] LABS: FREE T4 1.3 NG/DL (0.89-1.76); THYROID STIMULATING HORMONE 0.035 uIU/ML (0.55-4.78)
== END ==
LOC: M PLALAB 11:24
PROVIDERS: ATTEND Physician Assistant Medical
DX: E06.3 Autoimmune thyroiditis (principal); J02.9 Acute pharyngitis, unspecified

== ENCOUNTER → 2023-04-20 | Outpatient (CLI) | payer SELFPAY ==
[2023-04-20 14:19] LABS: BASO # 0.1 10^3/uL (0.0-0.2); BASO % 0.5 % (0.0-1.0); EOS # 0.1 10^3/uL (0.0-0.5); EOS % 1.2 % (0.0-3.0); HEMATOCRIT 41.6 % (36.0-47.0); HEMOGLOBIN 13.2 g/dl (12.0-15.5); LYMPH # 3.3 10^3/uL (1.5-5.0); LYMPH % 34.4 % (24.0-44.0); MEAN CORPUSCULAR HEMOGLOBIN 29.9 pg (27.0-33.0); MEAN CORPUSCULAR HGB CONC 31.7 g/dl (32.0-36.5); MEAN CORPUSCULAR VOLUME 94.1 fl (80.0-96.0); MONO # 0.5 10^3/uL (0.0-0.8); MONO % 5.4 % (2.0-8.0); NEUTROPHILS # 5.7 10^3/uL (1.5-8.5); NEUTROPHILS % 58.2 % (36.0-66.0); PLATELET COUNT, AUTOMATED 294 10^3/uL (150-450); RED BLOOD COUNT 4.42 10^6/uL (4.00-5.40); WHITE BLOOD COUNT 9.7 10^3/uL (4.0-10.0)
[2023-04-20 14:45] LABS: FREE T4 1.1 NG/DL (0.89-1.76); THYROID STIMULATING HORMONE 0.323 uIU/ML (0.55-4.78)
== END ==
LOC: M PLALAB 11:46
PROVIDERS: ATTEND Physician Assistant Medical
DX: E03.8 Other specified hypothyroidism (principal)

== ENCOUNTER → 2023-12-03 | Outpatient (REF) | payer SELFPAY ==
[2023-12-03 13:12] LABS: ALBUMIN 4.2 G/DL (3.2-5.2); ALKALINE PHOSPHATASE 42 U/L (46-116); ALT/SGPT 31 U/L (7.0-40); AST/SGOT 18 U/L (<34); BILIRUBIN,TOTAL 0.6 MG/DL (0.3-1.2); BLOOD UREA NITROGEN 26 MG/DL (9-23); CALCIUM LEVEL 9.7 MG/DL (8.5-10.1); CARBON DIOXIDE LEVEL 27 MMOL/L (20-31); CHLORIDE LEVEL 108 MMOL/L (98-107); CREATININE FOR GFR 0.95 MG/DL (0.55-1.30); GLOMERULAR FILTRATION RATE > 60.0 (>60); GLUCOSE, FASTING 84 MG/DL (60-100); POTASSIUM SERUM 4.5 MMOL/L (3.5-5.1); SODIUM LEVEL 135 MMOL/L (136-145); TOTAL PROTEIN 6.5 G/DL (5.7-8.2)
[2023-12-03 13:13] LABS: THYROID STIMULATING HORMONE 0.564 uIU/ML (0.55-4.78)
[2023-12-03 13:14] LABS: FREE T4 1.06 NG/DL (0.89-1.76); TOTAL 25(OH) VITAMIN D 24.6 NG/ML (20.0-100.0)
== END ==
LOC: M LAB REF 11:41
PROVIDERS: ATTEND Nurse Practitioner Family
DX: E06.3 Autoimmune thyroiditis (principal); E55.9 Vitamin D deficiency, unspecified; Z13.6 Encounter for screening for cardiovascular disorders

== ENCOUNTER → 2025-05-24 | Outpatient (REF) | payer SELFPAY | LOC: M LAB REF 10:57 | PROVIDERS: ATTEND Nurse Practitioner Family | DX: E06.3 Autoimmune thyroiditis (principal) ==

== ENCOUNTER → 2025-06-06 | Outpatient (CLI) | payer SELFPAY | LOC: M RAD 14:32 | PROVIDERS: ATTEND Midwife | DX: Z34.82 Encounter for supervision of other normal pregnancy, second trimester (principal); Z3A.21 21 weeks gestation of pregnancy ==

== ENCOUNTER → 2025-06-21 | Outpatient (CLI) | payer SELFPAY ==
[2025-06-21 14:50] LABS: FREE T4 1.55 NG/DL (0.89-1.76)
== END ==
LOC: M WUC 11:21
PROVIDERS: ATTEND Midwife
DX: E03.9 Hypothyroidism, unspecified (principal); Z34.80 Encounter for supervision of other normal pregnancy, unspecified trimester

== ENCOUNTER → 2025-07-24 | Outpatient (REF) | payer SELFPAY ==
[2025-07-24 13:59] LABS: GLUCOSE,RANDOM 87.0 MG/DL (LESS THAN 200); PLATELET COUNT, AUTOMATED 272 10^3/uL (150-450)
[2025-07-24 14:03] LABS: FREE T4 1.08 NG/DL (0.89-1.76)
== END ==
LOC: M LABDRWAD 13:23
PROVIDERS: ATTEND Midwife
DX: Z34.80 Encounter for supervision of other normal pregnancy, unspecified trimester (principal)